=== PATIENT | female | born 1980 | race Caucasian/White ===

== ENCOUNTER 2021-05-12 10:07 | Outpatient (REF) | payer OTHER, SELFPAY ==
[2021-05-12 10:53] LABS: MANUAL DIFF FLAG NO
[2021-05-12 10:56] LABS: Basophils Percent Auto 0.8 % (0-2); Eosinophils Percent Auto 0.8 % (0-4); Hematocrit 40.2 % (37-47); Hemoglobin 13.6 g/dl (12.0-16.0); Imm Gran Abs Auto 0.02 X10*3/uL (0.00-0.03); Imm Gran Pct Auto 0.4 % (0.0-0.4); Lymphocytes Absolute Auto 1.4 X10*3/uL (1.2-4.9); Lymphocytes Percent Auto 28.4 % (20-40); Mean Corpuscular HGB Conc 33.8 g/dl (31.0-35.0); Mean Corpuscular Hemoglobin 32.6 pg (27.0-33.0); Mean Corpuscular Volume 96.4 fL (80-98); Mean Platelet Volume 10.8 fL (9.4-12.3); Monocytes Absolute Auto 0.5 X10*3/uL (0.1-1.2); Monocytes Percent Auto 9.3 % (2-11); Neutrophils Absolute Auto 2.9 X10*3/uL (2.0-8.3); Neutrophils Percent Auto 60.3 % (45-73); Platelet Count 296 X10*3/uL (160-400); Red Blood Count 4.17 X10*6/uL (4.20-5.50); Red Cell Distribution Width 11.7 % (11.0-16.0); White Blood Count 4.8 X10*3/uL (4.8-10.8)
[2021-05-12 12:15] LABS: Alanine Aminotransferase 14 U/L (0-31); Albumin Level 4.4 g/dL (3.5-5.0); Alkaline Phosphatase 46 U/L (39-117); Anion Gap 10 (12-20); Aspartate Amino Transferase 14 U/L (5-31); Bilirubin Total 0.8 mg/dL (0.0-1.0); Blood Urea Nitrogen 10 mg/dL (9-16); Calcium 9.3 mg/dL (8.4-10.2); Carbon Dioxide 26 mmol/L (22-29); Chloride 107 mmol/L (96-108); Cholesterol 165 mg/dL; Estimated Glomerular Filt Rate > 60; Glucose Fasting 95 mg/dL (60-99); HDL Cholesterol 55 mg/dL; LDL Cholesterol Calculated 97 mg/dl; Potassium 4.6 mmol/L (3.3-5.1); Sodium 138 mmol/L (135-145); Total Protein 7.2 g/dL (6.5-8.0); Triglycerides 69 mg/dL
[2021-05-12 12:18] LABS: Vitamin D 25-OH Total 8.7 ng/mL (>30)
== END 2021-05-12 10:08 | disposition home or self-care (01) ==
LOC: HO.LAB 10:07
PROVIDERS: PCP Internal Medicine; Visit Provider Internal Medicine
DX: Z00.00 Encounter for general adult medical examination without abnormal findings (principal)
CPT/HCPCS: 36415; 80053; 80061; 82306; 85025

== ENCOUNTER 2022-10-13 08:37 | Outpatient (REF) | payer OTHER, SELFPAY ==
[2022-10-13 08:45] LABS: MANUAL DIFF FLAG NO
[2022-10-13 09:15] LABS: Basophils Absolute Auto 0.1 X10*3/uL (0.0-0.2); Eosinophils Absolute Auto 0.1 X10*3/uL (0.0-0.4); Eosinophils Percent Auto 1.6 % (0-4); Hematocrit 38.8 % (37.0-47.0); Imm Gran Abs Auto 0.01 X10*3/uL (0.00-0.03); Imm Gran Pct Auto 0.2 % (0.0-0.4); Lymphocytes Absolute Auto 1.8 X10*3/uL (1.2-4.9); Lymphocytes Percent Auto 35.9 % (20-40); Mean Corpuscular HGB Conc 33.5 g/dl (31.0-35.0); Mean Corpuscular Hemoglobin 32.6 pg (27.0-33.0); Mean Corpuscular Volume 97.2 fL (80.0-98.0); Mean Platelet Volume 10.1 fL (9.4-12.3); Monocytes Absolute Auto 0.5 X10*3/uL (0.1-1.2); Monocytes Percent Auto 10.5 % (2-11); Neutrophils Absolute Auto 2.5 x10*3/uL (2.0-8.3); Neutrophils Percent Auto 50.8 % (45-73); Platelet Count 332 X10*3/uL (160-400); Red Blood Count 3.99 X10*6/uL (4.20-5.50); Red Cell Distribution Width 11.6 % (11.0-16.0); White Blood Count 4.9 X10*3/uL (4.8-10.8)
[2022-10-13 09:39] LABS: Alanine Aminotransferase 17 U/L (0-31); Albumin Level 4.1 g/dL (3.5-5.0); Alkaline Phosphatase 46 U/L (39-117); Anion Gap 10 (12-20); Aspartate Amino Transferase 16 U/L (5-31); Bilirubin Total 0.6 mg/dL (0.0-1.0); Blood Urea Nitrogen 14 mg/dL (9-16); Calcium 9.3 mg/dL (8.4-10.2); Carbon Dioxide 24 mmol/L (22-29); Chloride 108 mmol/L (96-108); Cholesterol 170 mg/dL; Estimated Glomerular Filt Rate > 60; Glucose Fasting 103 mg/dL (60-99); HDL Cholesterol 62 mg/dL; LDL Cholesterol Calculated 93 mg/dl; Potassium 4.4 mmol/L (3.3-5.1); Sodium 138 mmol/L (135-145); Total Protein 6.7 g/dL (6.5-8.0); Triglycerides 75 mg/dL
== END 2022-10-13 08:38 | disposition home or self-care (01) ==
LOC: HO.LAB 08:37
PROVIDERS: PCP Internal Medicine; Visit Provider Internal Medicine
DX: Z00.00 Encounter for general adult medical examination without abnormal findings (principal)
CPT/HCPCS: 36415; 80053; 80061; 85025

== ENCOUNTER 2025-03-08 08:19 | Outpatient (AMB) | payer OTHER, SELFPAY ==
--- NOTE | 2025-03-08 08:24 | A.OFFPC_ITS ---
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 by: Self / Same As Patient Allergies acetaminophen [Percocet] Allergy (Unknown, Verified 03/08/25 08:24) vomiting amoxicillin [AMOXICILLIN] Allergy (Unknown, Unverified 03/08/25 08:24) RASH oxycodone [From PERCOCET] Allergy (Unknown, Unverified 03/08/25 08:24) NAUSEA & VOMITING sulfamethoxazole [From BACTRIM] Allergy (Unknown, Unverified 03/08/25 08:24) NAUSEA & VOMITING, HEADACHES trimethoprim [From BACTRIM] Allergy (Unknown, Unverified 03/08/25 08:24) NAUSEA & VOMITING, HEADACHES Medication List - Last Reconciled 03/08/25 by IGGY De Los Santos No Known Home Meds HPI HPI Comments History of Present Illness Details 45 year old female without any significa nt past medical history presents to the office today for annual physical exam. Throat irritation-ongoing for over 2 months. She describes an irritation in the back of the throat that feels as if she has something small stuck such as a piece of hair and is unable to clear this. Denies any dysphagia or odynophagia. No unintentional weight loss. She has been seen in urgent care who was unable to identify any specific cause. She reports this is intermittent , unable to identify any specific trigger. She states the sensation is exacerbated by thinking about it. 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 No sore throat, nasal congestion, rhinorrhe a, sinus pain, ear pain Neck - no adenopathy Cardiovascular: No chest pain, palpitations, or leg edema Respiratory: No shortness of breath, wheezing, cough GI: No abdominal pain, nausea, vomiting, diarrhea, constipation, melena, hematochezia : No dysuria, hematuria, increased urinary frequency, decreased urinary output MSK: No myalgia, back pain, arthralgias Neuro: No headaches, weakness, paresthesias Psych: no depression/anxiery. No AH/VH. No SI/HI Skin: No rashes or lesions EXAM: Constitutional - Awake and Alert, No apparent distress Eyes - PERRLA, EOMI. Anicteric Nose- septum midline, nares clear, no sinus tenderness Mouth/throat- mucosa moist, tongue and uvula midline, no erythema/edema or tonsillar adenopathy. Posterior cobblestoning noted Neck-trachea midline, thyroid symmetric without palpable nodules, no adenopathy Cardiovascular - S1S2, RRR, No edema Respiratory - Normal lung expansion, Normal respiratory effort, No respiratory distress, CTA bilaterally Gastrointestinal - NT / ND; +BS; No rebound or guarding - No CVA tenderness Extremities - no calf tenderness bilaterally, no swelling Musculoskeletal - Normal inspection, normal ROM Skin - Warm/Dry Neurological - Alert & oriented x3, CN II-XII in tact, 5/5 strength BUE and BLE Psychological - Appropriate affect PFSH Medical History (Updated 03/08/25 @ 08:56 by IGGY De Los Santos) No pertinent past medical history Surgical History (Updated 03/08/25 @ 08:56 by IGGY De Los Santos) No pertinent past surgical history Family History (Updated 03/08/25 @ 09:00 by IGGY De Los Santos) Father Lung cancer Pancreatic cancer Paternal Aunt Pancreatic cancer Breast cancer Paternal Uncle FH: testicular cancer Maternal Grandfather Coronary artery disease Myocardial infarct Paternal Uncle Myocardial infarct Coronary artery disease Questionnaire PHQ-9 Over the last 2 weeks, how often have you been bothered by any of the following problems? 1. Little interest or pleasure in doing things: not at all 2. Feeling down, depressed, or hopeless: not at all 3. Trouble falling or staying asleep, or sleeping too much: not at all 4. Feeling tired or having little energy: not at all 5. Poor appetite or overeating: not at all 6. Feeling bad about yourself - or that you are a failure or have let yourself or your family down: not at all 7. Trouble concentrating on things, such as reading the newspaper or watching television: not at all 8. Moving or speaking so slowly that other people could have noticed. Or the opposite - being so fidgety or restless that you have been moving around a lot more than usual: not at all 9. Thoughts that you would be better off or of hurting yourself in some way: not at all Total score: 0 Source: Developed by Drs. Cordell Marino, Celine Callaway, Austyn Reyes and colleagues, with an educational woody from [employer]. Thrive Questionnaire Date Thrive assessed: 03/08/25 I am a: Patient What is your living situation today?: I have a steady place to live Within the past 12 months, did the food you bought not last and you didn't have the money to get more?: Never true Within the past 12 months, did you worry whether your food would run out before you got money to buy more?: Never true Do you have trouble paying for medicines?: No Do you have trouble getting transportation to medical appointments?: No Do you have trouble paying your heating and electricity bill?: No Do you have trouble taking care of your child, family member or friend?: No Do you have trouble with day-to-day activities such as bathing, preparing meals, shopping, managing finances, etc.?: No Are you currently unemployed and looking for a job?: No Are you interested in more education?: No Please select the resources that you would like help with: None THRIVE Score: 0 SHERRY-7 AMB Questionnaire SHERRY-7 Date SHERRY - 7 assessed: 03/08/25 Feeling nervous, anxious, or on edge: 0 = Not at all Not being able to stop or control worryin = Not at all Worrying too much about different things: 0 = Not at all Trouble relaxin = Not at all Being so restless that it is hard to sit still: 0 = Not at all Becoming easily annoyed or irritable: 0 = Not at all Feeling afraid as if something awful might happen: 0 = Not at all Total SHERRY-7 score (0-4 normal; 5-9 mild; 10-14 moderate; 15-21 severe): 0 Source: Developed by Drs. Cordell Marino, Celine Callaway, Austyn Reyes and colleagues, with an educational woody from [employer]. Physical exam (Primary Care) Vital Signs: Last Vital Signs Temp 98.0 F 03/08/25 08:27 Pulse 94 03/08/25 08:27 Resp 14 03/08/25 08:27 BP 130/90 H 03/08/25 08:27 Pulse Ox 99 03/08/25 08:27 Oxygen Delivery Method Room Air 03/08/25 08:27 BMI result Body Mass Index 24.1 PHQ-9: PHQ-9 Score PHQ-9: Total score 0 03/08/25 10:46 Thrive Assessment: Date of Thrive Assessment Date Thrive assessed 03/08/25 03/08/25 09:02 Coding Level of Care Code Est Pt Level 3 (04476) Est Pt Prev Care 40-64y(25231) Diagnoses Routine medical exam Z00.00 Throat irritation J39.2 Assessment & Plan Assessment & Plan (1) Routine medical exam: Code(s): Z00.00 - Encounter for general adult medical examination without abnormal findings Category: Medical Plan: Overall in good general state of health. Concerns addressed ass below. PHQ-9, Thrive, SHERRY-7 scales negative. (2) Throat irritation: Code(s): J39.2 - Other diseases of pharynx Category: Medical Plan: Etiology unclear. Referred to ENT for consideration of laryngoscope Plan Routine screening labs as ordered below. Referred for screening colonoscopy. Referral placed for ENT as well as Dermatology. Will obtain records for mammogram and Pap smear from [facility]. Continue with screening mammograms, Pap smears, colonoscopies Continue following for annual skin exams and use sun protection Annual eye exams Wear seat belt in car Recommend regular exercise and healthy diet Orders: Orders Basic Metabolic Panel Today N95.1 - Menopausal and female climacteric states, Z00.00 - Encounter for general adult medical examination without abnormal findings Complete Blood Count Auto Diff Today Z00.00 - Encounter for general adult medical examination without abnormal findings Lipid Panel Today Z00.00 - Encounter for general adult medical examination without abnormal findings Liver Panel Today Z00.00 - Encounter for general adult medical examination without abnormal findings TSH reflex Free T4 Today Z00.00 - Encounter for general adult medical examination without abnormal findings Hemoglobin A1c Today Z00.00 - Encounter for general adult medical examination without abnormal findings Vitamin D 25-OH Total Today Z00.00 - Encounter for general adult medical examination without abnormal findings Referrals Dermatology Referral Z12.83 - Encounter for screening for malignant neoplasm of skin Gastroenterology Referral Z00.00 - Encounter for general adult medical examination without abnormal findings, Z12.11 - Encounter for screening for malignant neoplasm of colon Ear/Nose/Throat Referral J39.2 - Other diseases of pharynx
[2025-03-08 08:27] VITALS: BP 130/90; PULSE 94; RESP 14; TEMP 36.7; O2SAT 99; BMI 24.1
== END 2025-03-08 08:54 | disposition home or self-care (01) ==
LOC: HO.HMCHD 08:20
PROVIDERS: PCP Internal Medicine; Visit Provider Physician Assistant
DX: Z00.00 Encounter for general adult medical examination without abnormal findings (principal); J39.2 Other diseases of pharynx

== ENCOUNTER → 2025-03-08 08:19 | Outpatient (BNVA) | payer OTHER, SELFPAY | PROVIDERS: PCP Internal Medicine; Visit Provider Physician Assistant ==

== ENCOUNTER 2025-05-25 15:05 | Outpatient (AMB) | payer OTHER, SELFPAY ==
--- NOTE | 2025-05-25 15:12 | MHC.PC.OV ---
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 by: Self / Same As Patient Allergies acetaminophen (Percocet) Allergy (Unknown, Verified 03/08/25 08:24) vomiting amoxicillin (AMOXICILLIN) Allergy (Unknown, Unverified 03/08/25 08:24) RASH oxycodone (From PERCOCET) Allergy (Unknown, Unverified 03/08/25 08:24) NAUSEA & VOMITING sulfamethoxazole (From BACTRIM) Allergy (Unknown, Unverified 03/08/25 08:24) NAUSEA & VOMITING, HEADACHES trimethoprim (From BACTRIM) Allergy (Unknown, Unverified 03/08/25 08:24) NAUSEA & VOMITING, HEADACHES HPI HPI Comments History of Present Illness Details 45 year old female without any significant PMH presents for evaluation. Throat irritation-ongoing for over 4 months. She describes an irritation in the back of the throat that feels as if she has something small stuck such as a piece of hair and is unable to clear this. Denies any dysphagia or odynophagia. No unintentional weight loss. She has been seen in urgent care who was unable to identify any specific cause. She reports this is intermittent , unable to identify any specific trigger. She states the sensation is exacerbated by thinking about it. ENT appt scheduled early 2025. L shoulder pain- x2 months L shoulder. no known injury. Worse when laying or sitting. If on laying on R side, needs to put a pillow under because it feels like its pulling the joint . Taking ibuprofen and has decreased activity. No better. Shutting car door also bothers her and raising arm. Prior gym routine cardio and weights, but has cut back on the weights. 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 ROS: see hpi EXAM: Constitutional - Awake and Alert, No apparent distress Eyes - PERRL Cardiovascular - S1S2, RRR, No edema Respiratory - Normal lung expansion, Normal respiratory effort, No respiratory distress, CTA bilaterally Extremities - no calf tenderness bilaterally, no swelling MSK - L shoulder- ttp over the anterior aspect of the shoulder/bicep tendon. No bony abn, effusion, erythema. Full ROM, pain with flexion Skin - Warm/Dry Neurological - Alert & oriented x3, 5/5 strength BUE, sensation in tact Psychological - Appropriate affect PFSH Medical History (Updated 05/25/25 @ 15:59 by IGGY De Los Santos) No pertinent past medical history Surgical History (Updated 03/08/25 @ 08:56 by IGGY De Los Santos) No pertinent past surgical history Family History (Updated 03/08/25 @ 09:00 by IGGY De Los Santos) Father Lung cancer Pancreatic cancer Paternal Aunt Pancreatic cancer Breast cancer Paternal Uncle FH: testicular cancer Maternal Grandfather Coronary artery disease Myocardial infarct Paternal Uncle Myocardial infarct Coronary artery disease Questionnaire Thrive Questionnaire Date Thrive assessed: 03/08/25 SHERRY-7 AMB Questionnaire SHERRY-7 Date SHERRY - 7 assessed: 03/08/25 Source: Developed by Drs. Cordell Marino, Celine Callaway, Austyn Reyes and colleagues, with an educational woody from [employer]. Physical exam (Primary Care) Vital Signs: Last Vital Signs Temp 98.0 F 05/25/25 15:24 Pulse 68 05/25/25 15:24 Resp 14 05/25/25 15:24 BP 138/80 05/25/25 15:24 BMI result Body Mass Index 23.9 Thrive Assessment: Date of Thrive Assessment Date Thrive assessed 03/08/25 05/25/25 15:13 Coding Level of Care Code Est Pt Level 3 (42981) Diagnoses Left shoulder pain M25.512 Throat irritation J39.2 Assessment & Plan Assessment & Plan (1) Left shoulder pain: Code(s): M25.512 - Pain in left shoulder Category: Medical Plan: Suspect bicep tendonitis, but possibly rotator cuff impingement. XR shoulder ordered. Referral placed to ortho. Given execises to perform at home, will contact office if should would like referral to PT. Iburpofen prn, ice, rest. (2) Throat irritation: Code(s): J39.2 - Other diseases of pharynx Category: Medical Plan: Follow up with ENT Plan Follow up prn Orders: Orders XR shoulder LT min 2V Today M25.512 - Pain in left shoulder Patient Instructions: Probable biceps tendonitis (would favor) Possible rotator cuff impingement vs frozen shoulder
[2025-05-25 15:24] VITALS: BP 138/80; PULSE 68; RESP 14; TEMP 36.7; BMI 23.9
== END 2025-05-25 16:05 | disposition home or self-care (01) ==
LOC: HO.HMCHD 15:05
PROVIDERS: PCP Internal Medicine; Visit Provider Physician Assistant
DX: M25.512 Pain in left shoulder (principal); J39.2 Other diseases of pharynx

== ENCOUNTER 2025-07-08 07:53 | Outpatient (AMB) | payer OTHER, SELFPAY ==
--- NOTE | 2025-07-08 07:57 | MHC.OFFVIS ---
Vital Signs 07/08/25 08:02 Height 5 ft 9 in Weight 155 lb BMI 22.9 BP 101/69 Blood Pressure Location Lt brachial Position Sitting Pulse 59 Intake Visit Reasons: Berry screening Intake Note: Patient new consult for pre Colonoscopy screening. Patient denies any GI issues for today visit. 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 Accompanied by: Self / Same As Patient Allergies acetaminophen (Percocet) Allergy (Unknown, Verified 07/08/25 07:57) vomiting amoxicillin (AMOXICILLIN) Allergy (Unknown, Verified 07/08/25 07:57) RASH oxycodone (From PERCOCET) Allergy (Unknown, Verified 07/08/25 07:57) NAUSEA & VOMITING sulfamethoxazole (From BACTRIM) Allergy (Unknown, Verified 07/08/25 07:57) NAUSEA & VOMITING, HEADACHES trimethoprim (From BACTRIM) Allergy (Unknown, Verified 07/08/25 07:57) NAUSEA & VOMITING, HEADACHES Medication List - Last Reconciled 07/08/25 by Reshma Hall CNP ciclopirox 0.77% appl topical PRN HPI HPI Berry screening: Details: Patient is a 45-year-old female without any significant past medical history. Referred by PCP for pre colonoscopy screening. Patient presents for initial GI evaluation for colonoscopy screening. Reports normal bowel movements, generally once per day, with no history of constipation or diarrhea. Appetite is described as good. No associated GI or systemic symptoms. Family history notable for absence of colorectal or stomach cancer in first-degree relatives. No other comorbidities or treatments reported that would influence GI status or procedural risk. Patient denies: fever/chills, n/v, appetite changes, pyrosis, regurgitation,dysphasia, unintentional wt loss, ab pain or melena/hematochezia. Social hx: -ETOH use,Socially a few times per week. -denies recreational drug use -non-smoker - family hx as below -denies personal hx of CA -denies significant cardiopulmonary history -tolerated anesthesia in the past without difficulty. PFSH Medical History (Updated 07/08/25 @ 08:05 by Reshma Hall CNP) Colon cancer screening No pertinent past medical history Surgical History (Updated 07/08/25 @ 08:04 by Tomasa Clemente) Hx of hernia repair No pertinent past surgical history Family History Father Lung cancer Pancreatic cancer Paternal Aunt Pancreatic cancer Breast cancer Paternal Uncle FH: testicular cancer Maternal Grandfather Coronary artery disease Myocardial infarct Paternal Uncle Myocardial infarct Coronary artery disease Social History Household Members: Family Alcohol intake: current Alcohol intake frequency: holidays/special occasions only Patient Tobacco Use Status: Never used Tobacco Review of Systems Const Reports as per HPI ENT Reports as per HPI Card Reports as per HPI Resp Reports as per HPI GI Reports as per HPI Reports as per HPI Physical Exam Vital Signs: Last Vital Signs Pulse 59 07/08/25 08:02 BP 101/69 07/08/25 08:02 BMI result Body Mass Index 22.9 Const General: healthy appearing, no acute distress and well developed Nutritional Appearance: average body habitus Orientation/consciousness: patient oriented x3 HEENT Head: Yes normal to inspection, Yes normocephalic and Yes atraumatic Face and sinus: Yes normal facial exam Eyes General: appearance normal, both eyes and all related structures Neck Neck: Yes normal visual inspection Resp Effort & Inspection: normal respiratory effort, able to speak in complete sentences, no tracheal deviation and symmetric chest movement Cardio Jugular venous distension: no JVD GI Auscultation: normal bowel sounds Neuro General: patient oriented x3 Gait exam (Neuro): Normal gait present Psych Appearance: grossly normal Mental Status: mental status grossly normal Speech and movement: Normal speech and movement present Affect: normal affect Attitude: cooperative Thought process: Normal thought process present Thought content: Normal thought content present Insight: Good insight present (Psych) Judgement: Good judgement present (Psych) Assessment & Plan Assessment & Plan (1) Colon cancer screening: Code(s): Z12.11 - Encounter for screening for malignant neoplasm of colon Category: Medical Plan: Due for index screening colonoscopy. No alarm features. Medications: -prescriptions for laxative tablets and MiraLax sent to pharmacy; instructions for Gatorade purchase and clear liquid diet given. Patient educated on scheduling process, procedure preparation, including avoiding certain foods and ensuring clear liquid intake Advised on necessity for ride post-procedure due to sedation. Plan Follow-up after colonoscopy as needed or sooner as needed Time: I spent a total of 15 minutes on the date of encounter which includes: Preparing to see the patient (reviewed previous documentation, test results and medical history) Performing a medically appropriate exam and/or evaluation Ordering medications, tests, and procedures Documenting clinical information in the health record Orders: Referrals GI Procedure Notification Z12.11 - Encounter for screening for malignant neoplasm of colon Medications: New polyethylene glycol 3350 (Miralax) per colonoscopy prep instructions 238 grams PO ONCE 238 grams 0RF bisacodyl Take per colonoscopy instructions 5 mg PO ONCE 4 tabs 0RF Coding Level of Care Code New Pt Level 2 (24690) Diagnoses Colon cancer screening Z12.11
[2025-07-08 08:02] VITALS: BP 101/69; PULSE 59; BMI 22.9
== END 2025-07-08 08:20 | disposition home or self-care (01) ==
LOC: HO.HGI 07:53
PROVIDERS: PCP Internal Medicine; Visit Provider Nurse Practitioner Family
DX: Z01.818 Encounter for other preprocedural examination (principal); Z12.11 Encounter for screening for malignant neoplasm of colon
CPT/HCPCS: 99202

== ENCOUNTER 2025-07-23 08:32 | Outpatient (REF) | payer OTHER, SELFPAY ==
--- NOTE | ~2025-07-23 | XR_ITS ---
EXAMINATION: XR SHOULDER, LEFT CLINICAL INFORMATION: M25.512 - Pain in left shoulder COMPARISON: None available. TECHNIQUE: AP external rotation, Grashey, scapular Y, and axillary views of the left shoulder. FINDINGS: No acute cortical disruption or malalignment. No lytic or blastic lesions. No metallic or radiopaque foreign body. No soft tissue calcifications. XR/XR shoulder LT min 2V IMPRESSION: Normal x-ray, left shoulder. Electronically signed by: Tone Ventura MD 07/23/2025 08:50 AM EDT
[2025-07-23 10:11] LABS: MANUAL DIFF FLAG NO
[2025-07-23 10:20] LABS: Hematocrit 37.4 % (37.0-47.0); Hemoglobin 12.3 g/dl (12.0-16.0); Imm Gran Abs Auto 0.02 X10*3/uL (0.00-0.03); Imm Gran Pct Auto 0.5 % (0.0-0.4); Lymphocytes Absolute Auto 1.1 X10*3/uL (1.2-4.9); Mean Corpuscular HGB Conc 32.9 g/dl (31.0-35.0); Mean Corpuscular Hemoglobin 32.9 pg (27.0-33.0); Mean Corpuscular Volume 100.0 fL (80.0-98.0); NRBC Abs Auto 0.000 X10*3/uL (0.0-0.012); NRBC Pct Auto 0.0 /100WBC (0.0-0.2); Platelet Count 293 X10*3/uL (160-400); Red Blood Count 3.74 X10*6/uL (4.20-5.50); White Blood Count 4.3 X10*3/uL (4.8-10.8)
[2025-07-23 11:02] LABS: Alanine Aminotransferase 14 U/L (0-31); Albumin Level 4.4 g/dL (3.5-5.0); Alkaline Phosphatase 45 U/L (39-117); Anion Gap 9 (12-20); Aspartate Amino Transferase 19 U/L (5-31); Blood Urea Nitrogen 8 mg/dL (9-16); Calcium 9.0 mg/dL (8.4-10.2); Carbon Dioxide 26 mmol/L (22-29); Chloride 110 mmol/L (96-108); Cholesterol 169 mg/dL (<200); Estimated Glomerular Filt Rate > 60; HDL Cholesterol 58 mg/dL (>40); Potassium 4.0 mmol/L (3.3-5.1); Sodium 141 mmol/L (135-145); Total Protein 6.8 g/dL (6.5-8.0); Triglycerides 75 mg/dL (<150)
== END 2025-07-23 08:33 | disposition home or self-care (01) ==
LOC: HO.HMGCX 08:32
PROVIDERS: PCP Physician Assistant; Visit Provider Physician Assistant
DX: Z00.00 Encounter for general adult medical examination without abnormal findings (principal); N95.1 Menopausal and female climacteric states; M25.512 Pain in left shoulder; Z13.6 Encounter for screening for cardiovascular disorders; Z13.1 Encounter for screening for diabetes mellitus; Z13.21 Encounter for screening for nutritional disorder; Z13.29 Encounter for screening for other suspected endocrine disorder
CPT/HCPCS: 36415; 73030; 80048; 80061; 80076; 82306; 83036; 84443; 85025

== ENCOUNTER → 2025-07-23 08:38 | Outpatient (BNV) | payer OTHER, SELFPAY | PROVIDERS: PCP Physician Assistant; Visit Provider Radiology Diagnostic Radiology | DX: M25.512 Pain in left shoulder (principal) | CPT/HCPCS: 73030 ==